=== PATIENT | female | born 1965 | race Caucasian/White ===

== ENCOUNTER 2016-08-16 05:17 | Day surgery (SDC) | payer BC ==
[2016-08-14 15:37] LABS: BASOPHILS 2.3 %; BASOPHILS ABSOLUTE 0.06 10/3/uL (0.0-0.16); EOSINOPHILS 1.1 %; EOSINOPHILS ABSOLUTE 0.03 10/3/uL (0.0-0.53); HEMATOCRIT 37.9 % (36.0-48.0); HEMOGLOBIN 12.9 g/dL (12.0-16.0); LYMPHOCYTES 46.4 %; LYMPHOCYTES ABSOLUTE 1.22 10/3/uL (0.67-4.30); MEAN CORPUSCULAR HEMOGLOB 33.9 pg (26.0-34.0); MEAN PLATELET VOLUME 8.8 fL (9.2-13.0); MONOCYTES 10.3 %; MONOCYTES ABSOLUTE 0.27 10/3/uL (0.21-1.20); NEUTROPHILS 39.9 %; NEUTROPHILS ABSOLUTE 1.05 10/3/uL (2.02-8.40); PLATELET COUNT 320 10/3/uL (150-400); RED CELL COUNT 3.81 10/6/uL (4.0-5.6)
[2016-08-14 15:38] LABS: MANUAL DIFF NO %; MEAN CORPUSCULAR VOLUME 99.5 fL (80-100); RBC DISTRIBUTION WIDTH 16.4 % (12.0-16.0); WHITE BLOOD CELLS 2.6 10/3/uL (4.5-10.5)
[2016-08-14 15:50] LABS: CALCIUM, SERUM 9.1 MG/DL (8.5-10.4); CHLORIDE, SERUM 104 MMOL/L (96-112); CO2 (CARBON DIOXIDE) 29 MMOL/L (24-34); CREATININE 0.83 MG/DL (0.55-1.02); GFR AFRICAN AMERICAN 95 ML/MIN (>=60); GFR NON AFRICAN AMERICAN 82 ML/MIN (>=60); GLUCOSE, SERUM 90 MG/DL (60-99); POTASSIUM, SERUM 4.4 MMOL/L (3.5-5.3); SODIUM, SERUM 141 MMOL/L (135-148)
[2016-08-14 15:54] LABS: BUN (BLOOD UREA NITROGEN) 21 MG/DL (6-23)
--- NOTE | ~2016-08-16 | OP ---
Record Of Operation [facility] [address] [place]. [address] NAME: HARRIS WRIGHT : 65 STATUS : [facility]#: [id number] AGE: 51 ADM/REG DATE : 08/16/16 MR#: [id number] REPORT SERV DATE: 08/20/16 DICTATED BY: LEVON ISLAS II DATE: 08/20/16 REPORT STATUS : Draft TRANSCRIBED BY: MODL DATE: 08/20/16 DATE OF PROCEDURE: 08/16/2016 PREOPERATIVE DIAGNOSES: 1. T2 metastatic pathologic fracture status post chemotherapy and radiation therapy. 2. Thoracic spine pain. POSTOPERATIVE DIAGNOSES: 1. T2 metastatic pathologic fracture status post chemotherapy and radiation therapy. 2. Thoracic spine pain. PROCEDURE: 1. T2 kyphoplasty. 2. Use of the stereotactic guidance system. SURGEON: Levon Islas M.D. FLUIDS: 1200 mL LR. ESTIMATED BLOOD LOSS: Zero. ANESTHESIA: General anesthesia. PREOPERATIVE HISTORY: This is a very friendly 51-year-old female, well known to me from a cervical spinal fusion. She did very well from this. She has been diagnosed with metastatic breast cancer, which has been treated by Dr. Romero. Dr. Romero sent her over for evaluation and consideration of kyphoplasty. I felt it was reasonable to attempt insofar as there was still a reasonable morphology of T2 present. We discussed that if this failed, however, a posterior spinal fusion would likely be necessary. DESCRIPTION OF PROCEDURE: After informed consent was obtained, the patient was brought to the operating room at her request, and general anesthesia achieved. She was placed in the prone position, and back was prepped and draped in a sterile fashion. The stereotactic spinal system was now initiated. Next, the trocar was advanced into the left pedicle of T2. The K-wire was then placed into T2 followed by placement of the working trocar. The lateral fluoroscopy was now established. Next, the bone cement was placed into the T2 vertebral body. We did get some reasonable fill into the vertebral body. However, there was some extravasation out through the pedicle back into the muscle. There was no extravasation into the canal. At this point, the trocar was removed and standard dressings applied. The patient was then extubated and transferred to PACU in stable condition. I discussed with her the fact that if this did not help significantly that additional surgery would be a very good option from a pain standpoint as well as from a stability standpoint. Record Of Operation [facility] [address] [place]. [address] NAME: HARRIS WRIGHT : 65 STATUS : [facility] PAT#: [id number] AGE: 51 ADM/REG DATE : 08/16/16 MR#: [id number] REPORT SERV DATE: 08/20/16 DICTATED BY: LEVON ISLAS II DATE: 08/20/16 REPORT STATUS : Draft TRANSCRIBED BY: MAN DATE: 08/20/16 RANDAL/MAN Levon Islas II, M.D. / [id number] CC: Armaan Romero M.D.
[~2016-08-16 05:17] MED LIST: AMB5 PO; FEMARA PO; HYDROCODONE 5/325 PO; IBRANCE PO; KLONO5 PO; LORTAB 5 PO; MULTIVITAMI1 PO; NORCO1 TA1 PO; PAX20 PO; ULTRAM50 PO; VITAMIN D31000 UNIT PO; WELLXL300 PO
[2016-08-31] MEDS ORDERED: NORCO1 TAB PO (17:09)
== END 2016-08-16 14:39 | disposition home or self-care (01) ==
LOC: SDC 05:17
PROVIDERS: Orthopaedic Surgery
PROC: 0PU43JZ Supplement Thoracic Vertebra with Synthetic Substitute, Percutaneous Approach (ICD-10-PCS; 2016-08-16)
PROC: 0PS43ZZ Reposition Thoracic Vertebra, Percutaneous Approach (ICD-10-PCS; principal; 2016-08-16 05:45)
DX: C79.51 Secondary malignant neoplasm of bone (principal); C50.311 Malignant neoplasm of lower-inner quadrant of right female breast; Z79.899 Other long term (current) drug therapy; Z90.710 Acquired absence of both cervix and uterus; Z90.49 Acquired absence of other specified parts of digestive tract; Z98.890 Other specified postprocedural states; Z90.89 Acquired absence of other organs
CPT/HCPCS: 80048; 85025; 93005; C1769; C1776; J2175; J2250; J2370; J2405; J2710; J3010; Q9967

== ENCOUNTER 2016-09-08 06:13 | Inpatient (IN) | payer BC ==
[2016-08-31 15:32] LABS: HEMATOCRIT 37.3 % (36.0-48.0); HEMOGLOBIN 12.7 g/dL (12.0-16.0)
[2016-08-31 15:54] LABS: BUN (BLOOD UREA NITROGEN) 24 MG/DL (6-23); CALCIUM, SERUM 8.4 MG/DL (8.5-10.4); CHLORIDE, SERUM 105 MMOL/L (96-112); CO2 (CARBON DIOXIDE) 26 MMOL/L (24-34); CREATININE 0.98 MG/DL (0.55-1.02); GFR AFRICAN AMERICAN 77 ML/MIN (>=60); GFR NON AFRICAN AMERICAN 67 ML/MIN (>=60); GLUCOSE, SERUM 100 MG/DL (60-99); POTASSIUM, SERUM 4.1 MMOL/L (3.5-5.3); SODIUM, SERUM 141 MMOL/L (135-148)
--- NOTE | ~2016-09-08 | OP ---
Record Of Operation [facility] [address] [place] [place]. [address] NAME: HARRIS WRIGHT : 65 STATUS : ADM IN [facility]#: [id number] AGE: 51 ADM/REG DATE : 09/08/16 MR#: [id number] REPORT SERV DATE: 09/10/16 DICTATED BY: LEVON ISLAS II DATE: 09/08/16 REPORT STATUS : Draft TRANSCRIBED BY: MODL DATE: 09/08/16 DATE OF PROCEDURE: 09/08/2016 PREOPERATIVE DIAGNOSES: 1. Metastatic breast cancer. 2. T2 metastatic fracture with instability and failed attempt at kyphoplasty. 3. History of C5-7 successful anterior arthrodesis, remote. 4. C7-T1 facet arthrosis with right upper extremity radiculopathy. 5. Severe thoracic pain secondary to T2 fracture and instability. POSTOPERATIVE DIAGNOSES: 1. Metastatic breast cancer. 2. T2 metastatic fracture with instability and failed attempt at kyphoplasty. 3. History of C5-7 successful anterior arthrodesis, remote. 4. C7-T1 facet arthrosis with right upper extremity radiculopathy. 5. Severe thoracic pain secondary to T2 fracture and instability. PROCEDURES: 1. Posterior open treatment of T2 pathologic burst fracture. 2. Laminectomy, C7-T1, T1-T2, T2-T3. 3. Posterior instrumentation, C6-T4. 4. Posterolateral arthrodesis, C7-T1, T1-T2, T2-T3, T3-T4. 5. Use of local autograft and allograft substitute and bone morphogenic protein. 6. Use of stereotactic spinal imaging. SURGEON: Levon Islas M.D. FLUIDS: 2 liters lactated Ringer's. ESTIMATED BLOOD LOSS: 150 mL. DRAINS: One. COMPLICATIONS: None. ANTIBIOTIC: Preoperatively. IMPLANTS: 1. Alphatec. 2. Spinal cord monitoring stable throughout the procedure. PREOPERATIVE HISTORY: This is a very friendly 51-year-old female, who is very well known to me from the past. She underwent a successful C5-C7 ACDF several years ago. Unfortunately, she has now been diagnosed with metastatic breast cancer, but overall, she has been successfully treated so far by Dr. Romero. She however is having severe thoracic pain. We attempted a kyphoplasty. We were able to perform the kyphoplasty, but overall, we did Record Of Operation [facility] [address] [place]. [address] NAME: HARRIS WRIGHT : 65 STATUS : ADM IN PAT#: [id number] AGE: 51 ADM/REG DATE : 09/08/16 MR#: [id number] REPORT SERV DATE: 09/10/16 DICTATED BY: LEVON ISLAS II DATE: 09/08/16 REPORT STATUS : Draft TRANSCRIBED BY: MODL DATE: 09/08/16 not get a great fill of the vertebral body secondary to the fracture instability. She has had persistent and actually worsening pain since that time. She is also complaining some of right upper extremity pain radiating into the shoulder blade and down the arm and into the long and little finger. This appeared to be more consistent with her C7-T1 facet arthrosis. I did not believe this was likely from a T2 compression and burst component. DESCRIPTION OF PROCEDURE: After informed consent was obtained, the patient was brought to the operating room at her request and general anesthesia was achieved. She was placed in a prone position. The back was prepped and draped in a sterile fashion. We used the Morel- Wells tongs to stabilize the occiput. At this point, prepping and draping was performed. Next, under loupe magnification and head lamp, the incision was performed and the subperiosteal exposure was completed from C6-T4. The fusion was solid at C5-6 and C6-7. I felt we would need likely fixation into C6 as typically the C7 lateral masses were usually rather small (this was later confirmed after CT imaging was performed). At this point, we then worked down and dissection completed down to T4. The deep retractors were placed and the intraoperative CT scan completed and the stereotactic guidance was then used throughout the case. At this point, we then confirmed the C7 lateral masses were very small. At this point, we then placed lateral mass screws into C6 bilaterally. I was able to place a small screw into the right C7 lateral mass, but not on the left as it was simply too thin. We then placed pedicle screws in the T1 bilaterally. The pedicles were extremely small on the right at T4. We were able to place a screw successfully into the pedicles of T3 and T4 on the left. On the right, I attempted one at T3, but later CT scan showed it was simply too medial. At this point, I removed it and placed a screw into the right pedicle of T2 as it appeared to be strong and without obvious compromise. At this point, we then performed a laminectomy at C7-T1. This was done overall to help decrease the pain radiating down the arm, which I felt was more due to her adjacent segment degeneration and facet changes. The exiting C8 nerve root was now free following the laminectomy and foraminotomy. Next, we then performed the dorsal decompression of the T1-T2 and T2-T3 spinal canal secondary to the burst component and also in hopes of creating additional space for the cord, should she have any regrowth of the tumor at that level. At this point, the dura was well decompressed, the spinal cord was decompressed along both lateral margins. At this point, we did openly treat the T2 fracture. Specifically, there was some extravasation of cement seen on the CT scan. This was in the lateral portion of the canal along the anterior aspect of the cord. We were able to remove this cement. There was no obvious tumor growth emanating from the vertebral body into the spinal cord. At this point, the area was fully irrigated. Next, at this point, the rods were assembled bilaterally. Final tightening was performed and a repeat CT scan confirmed acceptable placement of the implants. Record Of Operation [facility] [address] [place]. [address] NAME: HARRIS WRIGHT : 65 STATUS : ADM IN PAT#: [id number] AGE: 51 ADM/REG DATE : 09/08/16 MR#: [id number] REPORT SERV DATE: 09/10/16 DICTATED BY: LEVON ISLAS II DATE: 09/08/16 REPORT STATUS : Draft TRANSCRIBED BY: MODGeneva DATE: 09/08/16 Next, we then decorticated the lateral mass of C7 as well as the transverse processes of T1, T2, T3, and T4. We did place some local autograft taken from the C7-T1 area and placed it along the decorticated surfaces along with bone morphogenic protein and allograft substitute. A deep drain was placed followed by standard closure. The patient was then extubated and transferred to PACU in stable condition. RANDAL/MAN Levon Islas II, M.D. / [id number] CC: Johnathon Spencer II, M.D. JAMES ZUPPA, MD
[~2016-09-08 06:13] MED LIST changes: +NORCO1 TAB PO
[2016-09-10] MEDS ORDERED: MSCONTIN PO (09:27)
[2016-09-10] MEDS ORDERED: DIL2TAB PO (09:27)
[2016-09-10] MEDS ORDERED: V5 PO (09:27)
== END 2016-09-10 11:42 | disposition home or self-care (01) | DRG 457 ==
LOC: SDC/OF 06:13 → 3SO 14:01
PROVIDERS: Orthopaedic Surgery
PROC: 0RG10Z1 (ICD-10-PCS; 2016-09-08)
PROC: 0RG40Z1 (ICD-10-PCS; 2016-09-08)
PROC: 4A11X4G Monitoring of Peripheral Nervous Electrical Activity, Intraoperative, External Approach (ICD-10-PCS; 2016-09-08)
PROC: 0PS404Z Reposition Thoracic Vertebra with Internal Fixation Device, Open Approach (ICD-10-PCS; principal; 2016-09-08 06:45)
PROC: 0RG70Z1 (ICD-10-PCS; 2016-09-08 06:45)
DX: M84.58XA Pathological fracture in neoplastic disease, other specified site, initial encounter for fracture (principal); C79.51 Secondary malignant neoplasm of bone; C50.919 Malignant neoplasm of unspecified site of unspecified female breast
CPT/HCPCS: 36415; 80048; 82962; 85014; 85018; 86850; 86900; 86901; 87641; 88304; 88311; 93005; 97116-GP; 97161-GP; A9270-GY; C1713; J0690; J1170; J1644; J2250; J2370; J2405; J2710; J3010; J3370